=== PATIENT | female | born 1935 | race Caucasian/White ===

== ENCOUNTER 2017-11-08 12:30 | Outpatient (CLI) | payer MEDICARE, OTHER ==
[~2017-11-08] VITALS: Ht 157.5 cm; Wt 78.9 kg
[2017-11-08 12:39] VITALS: BP 150/77
[2017-11-08] MEDS ORDERED: AMLO2.5T PO (12:49)
[2017-11-08] MEDS ORDERED: CETI10TA17 PO (12:49)
[2017-11-08] MEDS ORDERED: HYDR25TA4 PO (12:49)
[2017-11-08] MEDS ORDERED: LOSA25TA21 PO (12:49)
[2017-11-08] MEDS ORDERED: ATOR10TA66 PO (12:49)
[2017-11-08 13:27] LABS: BILIRUBIN,URINE NEGATIVE (NEGATIVE); KETONES,URINE NEGATIVE (NEGATIVE); LEUKOCYTE ESTERASE ,URINE 1+ (NEGATIVE); NITRITE,URINE NEGATIVE (NEGATIVE); PH,URINE 6 (5-9); PROTEIN,URINE NEGATIVE (NEGATIVE); UROBILINOGEN,URINE NORMAL (NORMAL)
[2017-11-08 13:40] LABS: WBC,URINE RARE /HPF
[2017-11-08 13:46] LABS: BASOPHILS # (AUTO) 0.1 10^3/uL (0.0-0.1); BASOPHILS % (AUTO) 1 % (0-10); EOSINOPHILS # (AUTO) 0.5 10^3/uL (0.0-0.3); EOSINOPHILS % (AUTO) 5 % (0-10); LYMPHOCYTES # (AUTO) 2.6 X 10^3 (1.0-4.0); LYMPHOCYTES % (AUTO) 31 % (12-44); MEAN CORPUSCULAR HEMOGLOBIN 31 PG (25-34); MEAN CORPUSCULAR HGB CONC 33 G/DL (32-36); MEAN CORPUSCULAR VOLUME 94 FL (80-99); MEAN PLATELET VOLUME 11.1 FL (7.4-10.4); MONOCYTES # (AUTO) 0.5 X 10^3 (0.0-1.0); MONOCYTES % (AUTO) 6 % (0-12); NEUTROPHILS # (AUTO) 4.9 X 10^3 (1.8-7.8); NEUTROPHILS % (AUTO) 58 % (42-75); PLATELET COUNT 287 10^3/uL (130-400); RED BLOOD COUNT 4.29 10^6/uL (4.35-5.85); RED CELL DISTRIBUTION WIDTH 13.9 % (10.0-14.5); WHITE BLOOD COUNT 8.5 10^3/uL (4.3-11.0)
[2017-11-08 13:55] LABS: INR 0.9 (0.8-1.4); PROTHROMBIN TIME PATIENT 11.8 SEC (12.2-14.7)
[2017-11-08 13:56] LABS: ALANINE AMINOTRANSFERASE 22 U/L (0-55); ALBUMIN 4.1 GM/DL (3.2-4.5); ANION GAP 7 MMOL/L (5-14); ASPARTATE AMINO TRANSFERASE 23 U/L (5-34); BILIRUBIN,TOTAL 0.4 MG/DL (0.1-1.0); BLOOD UREA NITROGEN 18 MG/DL (7-18); BUN/CREATININE RATIO 26; CARBON DIOXIDE 29 MMOL/L (21-32); CHLORIDE 103 MMOL/L (98-107); GFR ESTIMATED > 60; GLUCOSE 104 MG/DL (70-105); POTASSIUM 3.6 MMOL/L (3.6-5.0); SODIUM 139 MMOL/L (135-145); TOTAL PROTEIN 7.2 GM/DL (6.4-8.2)
[2017-11-08 14:03] LABS: ERYTHROCYTE SEDIMENTATION RATE 17 MM/HR (0-30)
--- NOTE | 2017-11-08 14:15 | Diagnostic Imaging Report ---
INDICATION: Preop knee arthroplasty EXAMINATION: PA and lateral chest Heart size and pulmonary vascularity are normal. Lungs are clear. There are no effusions or pneumothoraces. IMPRESSION: Negative chest. Dictated by: Dictated on workstation # [id number]
== END 2017-11-08 13:35 | disposition home or self-care (01) ==
LOC: PREOP 12:30
PROVIDERS: ATTEND Orthopaedic Surgery
DX: Z01.811 Encounter for preprocedural respiratory examination (principal); Z01.812 Encounter for preprocedural laboratory examination; Z11.2 Encounter for screening for other bacterial diseases; M17.12 Unilateral primary osteoarthritis, left knee; R53.83 Other fatigue
CPT/HCPCS: 36415; 71020; 80053; 81000; 85025; 85610; 85652; 86850; 86900; 86901; 87081

== ENCOUNTER 2017-11-22 06:00 | Inpatient (IN) | payer MEDICARE, OTHER ==
--- NOTE | 2017-11-13 12:20 | HISTORY AND PHYSICAL ---
DATE OF SERVICE: SOCIAL SECURITY: 8976. This will be for inpatient admission on 11/22/2017, for left total knee arthroplasty. HISTORY OF PRESENT ILLNESS: The patient is an 82-year-old female with a longstanding progressive left knee pain. She has undergone treatment with hyaluronic acid and injections. She reports activity limitations because of the knee. She denies any recent injuries. Radiographs reveal complete loss of medial and patellofemoral joint spaces with osteophyte formation. Due to functional impairment and failure to improve with conservative measures, the patient has elected to proceed with surgical intervention. REVIEW OF SYSTEMS: No chest pain, no shortness of breath, no dysuria. PAST MEDICAL HISTORY: Arthritis. PAST SURGICAL HISTORY: Cholecystectomy, tonsillectomy, left knee arthroscopy and trigger finger release. FAMILY HISTORY: Significant for ischemic heart disease, leukemia. No local physician. MEDICATIONS: Vitamins. ALLERGIES: No known drug allergies. SOCIAL HISTORY: The patient denies alcohol and tobacco use. PHYSICAL EXAMINATION: GENERAL: The patient is well developed, well-nourished in no acute distress. HEENT: Normocephalic, atraumatic. Pupils are equal, round and reactive. Oropharynx is clear. NECK: Supple, no lymphadenopathy. LUNGS: Clear to auscultation bilaterally. HEART: Regular rate and rhythm. ABDOMEN: Soft, nontender, nondistended. EXTREMITIES: The left knee demonstrates range of motion 0/2/120. No skin lesions are noted. She has intact sensation throughout. She has trace valgus laxity. No varus laxity. Slight effusions noted. She is tender along the medial joint line. She has patellofemoral crepitus and pain with patellar loading. The patient ambulates with an antalgic gait. IMPRESSION: Severe left knee osteoarthritis unresponsive to conservative measures. PLAN: Left total knee arthroplasty. The risks, benefits, options, ramifications and recovery have been discussed at length with the patient. She understands and wishes to proceed. Job ID: [id number] DocumentID: [id number] Dictated Date: 11/13/2017 11:20:18 Computer Engineering Technician Date: 11/13/2017 12:12:13 Dictated By: JODI TILLEY MD
[~2017-11-22] VITALS: Ht 157.5 cm; Wt 78.9 kg
[~2017-11-22 06:00] MED LIST: AMLO2.5T PO; ATOR10TA66 PO; CETI10TA17 PO; HYDR25TA4 PO; LOSA25TA21 PO
[2017-11-22 06:27] VITALS: BP 136/80
[2017-11-22] MEDS ORDERED: CEFUROXIME INJECTION 1,500 MG in NS (IVPB) 50 ML IV ONE (06:45)
[2017-11-22] MEDS: LACTATED RINGERS 1,000 ML IV PRN ×2 (06:47→07:20)
[2017-11-22] MEDS ORDERED: CEFUROXIME 1.5 GM (ZINACEF) VIAL ONE (06:48)
[2017-11-22] MEDS ORDERED: NS (IVPB) 50 ML ONE (06:49)
[2017-11-22] MEDS ORDERED: ONDANSETRON 4 MG/2 ML (SDV) Z0FRAN ONE (06:58)
[2017-11-22] MEDS ORDERED: MIDAZOLAM 2 MG/2 ML (VERSED) VIAL ONE (06:58)
[2017-11-22] MEDS ORDERED: PROPOFOL INJECTION 50 ML IV ONE (06:58)
[2017-11-22] MEDS ORDERED: fentaNYL INJECTION 100 MCG/2 ML AMP ONE (07:07)
[2017-11-22] MEDS ORDERED: diphenhydrAMINE 50 MG/ML INJ (BENADRYL) IVP PRN (07:30)
[2017-11-22] MEDS ORDERED: morphine PCA 30 MG/30 ML VIAL IV PRN (07:30)
[2017-11-22] MEDS ORDERED: ACETAMINOPHEN 325 MG TABLET/CAPLET (TYLENOL) PO PRN (07:30)
--- NOTE | 2017-11-22 07:30 | Progress Note-Pre Operative ---
Pre-Operative Progress Note H&P Reviewed The H&P was reviewed, patient examined and no changes noted. Date Seen by Provider: Nov 22, 2017 Time Seen by Provider: 07:11 Date H&P Reviewed: Nov 22, 2017 Time H&P Reviewed: 07:11 Pre-Operative Diagnosis: left knee primary osteoarthritis JODI TILLEY MD Nov 22, 2017 07:30
--- NOTE | 2017-11-22 07:31 | Progress Note-Post Operative ---
Post-Operative Progess Note Surgeon (s)/Multiple Wire Sawyer (s) Surgeon JODI TILLEY MD Multiple Wire Sawyer: Adam Tariq Pre-Operative Diagnosis left knee primary osteoarthritis Post-Operative Diagnosis left knee primary osteoarthritis Procedure & Operative Findings Date of Procedure 11/22/17 Procedure Performed/Findings left total knee arthroplasty Anesthesia Type spinal Estimated Blood Loss Estimated blood loss (mL): minimal Specimens/Packing Specimens Removed none Packing: none JODI TILLEY MD Nov 22, 2017 07:31
[2017-11-22] MEDS ORDERED: OXYC-197 PO (07:33)
--- NOTE | 2017-11-22 07:36 | D/C HH Face to Face Order ---
D/C Face to Face Orders Instructions for Patient Patient Instructions/FollowUp: three weeks Physician to follow Patient: in three weeks Discharge Diet for Home: No Restrictions Patient Data-Allergies,Ht & Wt Patient Allergies: Coded Allergies: No Known Drug Allergies (Unverified , 11/08/17) Height (Feet): 5 Height (Inches): 2.00 Weight (Pounds): 174 Weight (Ounces): 0.0 Home Health Need/Face to Face Date of Face to Face: Nov 22, 2017 Clinical Findings: Generalized weakness and fatigue, Instability, Muscle weakness, Non or partial weight bearing, Pain with ambulation, Unsteady gait I have seen Pt [id number]: Yes Discharged To: Home Diagnosis/Conditions: left total knee arthroplasty Problems/Diagnosis/Condition: Patient is Homebound due to: Muscle weakness, Pain w/ambulation Homebound Status Due to the above stated illness, injury or surgical procedure (medical condition or diagnosis) and associated clinical findings, the patient is homebound because of his/her inability to leave home except with aid of a supportive device and/or person AND leaving the home requires a considerable and taxing effort or is medically contraindicated. Pt req the following assistanc: [facility] Nursing Orders Home Health Services Order: Physical Therapy-Evaluate & Treat Home Health Infusion Therapy Line Start Date: Nov 22, 2017 Line Start Time: 0620 Site Location: Forearm Therapy Orders Therapy Orders: Physical Therapy Therapy Specific Orders: Eval assistive deivces, Teach enviro modifications/ safety, Gait training, Increase strength/endurance, Restore ROM Certify Stmt I certify that this patient is under my care and that I, a nurse practitioner or a physician; a child care center assistant director working with me, had a face to face encounter that - meets the physician face to face encounter requirements with this patient as dated. JODI TILLEY MD Nov 22, 2017 07:36
[2017-11-22] MEDS ORDERED: INTRA-ARTICULAR IU ONE ×5 (07:45)
[2017-11-22] MEDS ORDERED: CATHETER FLUSH 10 ML SYR IV PRN (08:15)
[2017-11-22] MEDS ORDERED: ceFAZolin 1 GM/NS 50 ML IVPB IV ONE ×2 (08:15)
[2017-11-22] MEDS ORDERED: morphine INJ 10 MG/ML 1ML (SYR OR VIAL) ONE (08:48)
[2017-11-22] MEDS ORDERED: MEPERIDINE (DEMEROL) INJ 50 MG/ML IVP PRN (09:45)
[2017-11-22] MEDS ORDERED: morphine INJ 10 MG/ML 1ML (SYR OR VIAL) IVP PRN (09:45)
[2017-11-22] MEDS ORDERED: ONDANSETRON 4 MG/2 ML (SDV) Z0FRAN IVP PRN (09:45)
--- NOTE | 2017-11-22 10:18 | Diagnostic Imaging Report ---
2 views of the left knee. Indication: post total knee arthroplasty Findings: There is femoral and tibial prosthesis with patellar resurfacing and prosthesis seen. Anterior soft tissue post-operative changes are noted with anterior skin merlin seen. Impression: Baseline post left total knee arthroplasty in good alignment. Dictated by: Dictated on workstation # [id number]
--- NOTE | 2017-11-22 10:18 | Progress Note-Standard ---
Standard Progress Note Progress Notes/Assess & Plan Date Seen by Provider: Nov 22, 2017 Time Seen by Provider: 10:10 Progress/Assessment & Plan post op check No complaints Radiographs--HW well positioned. No fractures LLE--spinal in effect. 2 plus DP pulse with brisk cap refill. Intact DF and PF of toes and ankle s/p LTKA mobilize as able when spinal no longer in effect JODI TILLEY MD Nov 22, 2017 10:18
[2017-11-22 10:30] VITALS: BP 120/56
[2017-11-22] MEDS: NS IV 1000 ML 1,000 ML IV SCH ×2 (10:55→22:21)
--- NOTE | 2017-11-22 11:43 | Consultation-Hospitalist ---
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 Cartagena. Currently she has no pain and her BP is slightly low so I have held her home BP meds. Source: patient Exam Limitations: no limitations Date Seen 11/22/17 Attending Physician Jovani Cartagena MD PCP No,Local Physician Referring Physician Date of Admission Nov 22, 2017 at 06:00 Home Medications & Allergies Home Medications Reviewed patient Home Medication Reconciliation Form Allergies Allergies Coded Allergies No Known Drug Allergies (Fxnqomyumi10/13/17) Past Xqnkwou-Ifhhht-Zkbzfw Hx Patient Social History Marrital Status: single Employed/Student: retired Alcohol Use: Denies Use Recreational Drug Use: No Smoking Status: Never a Smoker Physical Abuse Screen: No Sexual Abuse: No Recent Foreign Travel: No Contact w/other who traveled: No Recent Hopitalizations: No Recent Infectious Disease Expo: No Immunizations Up To Date Date of Pneumonia Vaccine: Oct 31, 2017 Date of Influenza Vaccine: Aug 28, 2017 Seasonal Allergies Seasonal Allergies: No Surgeries Yes (left knee scope, trigger finger release) Respiratory No Cardiovascular Yes Hypertension Neurological No Genitourinary No Gastrointestinal No Musculoskeletal Yes Arthritis Endocrine History of Endocrine Disorders: No Cancer No Psychosocial History of Psychiatric Problem: No Integumentary History of Skin or Integumenta: No Blood Transfusions History of Blood Disorders: No Family Medical History Family Hx: Cardiovascular disease 19 FATHER Diabetes mellitus G8 SISTER FH: leukemia 19 MOTHER Hypertension 19 FATHER Myocardial infarction 19 FATHER Review of Systems Constitutional: see HPI EENTM: no symptoms reported Respiratory: no symptoms reported Cardiovascular: no symptoms reported Gastrointestinal: no symptoms reported Genitourinary: no symptoms reported Musculoskeletal: joint pain (left knee) Skin: no symptoms reported Psychiatric/Neurological: No Symptoms Reported All Other Systems Reviewed Negative Unless Noted: Yes Physical Exam Physical Exam Vital Signs Vital Sign - Last 12Hours 11/22/17 06:27 Temp 98.9 Pulse 93 Resp 18 B/P (MAP) 136/80 (98) Pulse Ox 93 O2 Delivery Room Air Capillary Refill : General Appearance: No Apparent Distress, WD/WN, Chronically ill Eyes: Bilateral Eye Normal Inspection, Bilateral Eye PERRL HEENT: PERRL/EOMI, Normal ENT Inspection, Pharynx Normal Neck: Full Range of Motion, Normal Inspection, Non Tender, Supple, Carotid Bruit Respiratory: Chest Non Tender, Lungs Clear, Normal Breath Sounds, No Accessory Muscle Use, No Respiratory Distress Cardiovascular: Regular Rate, Rhythm, No Edema, No Gallop, No JVD, No Murmur, Normal Peripheral Pulses Gastrointestinal: Normal Bowel Sounds, No Organomegaly, No Pulsatile Mass, Non Tender, Soft Back: Normal Inspection, No CVA Tenderness, No Vertebral Tenderness Extremity: Normal Capillary Refill, Normal Inspection, Normal Range of Motion ( except left knee), Non Tender, No Calf Tenderness, No Pedal Edema Neurologic/Psychiatric: Alert, Oriented x3, No Motor/Sensory Deficits, Normal Mood/Affect Skin: Normal Color, Warm/Dry Lymphatic: No Adenopathy Assessment/Plan Admission Diagnosis Assessment: s/p left knee arthroplasty POD # 0 HTN but currently experiencing mild hypotension so holding meds OA Assessment and Plan Plan: Monitor BP Check labs in am Hold BP meds for now BM regimen DVT Px Clinical Quality Measures DVT/VTE Risk/Contraindication: Risk Factor Score Per Nursin RFS Level Per Nursing on Admit: 4+=Very High DANA IVAN DO Nov 22, 2017 11:43
[2017-11-22] MEDS: SENNA W/DOCUSATE (SENOKOT S) TABLET PO SCH ×2 (11:56→20:22)
[2017-11-22 12:00] VITALS: BP 134/61
[2017-11-22] MEDS: oxyCODONE/APAP 5/325MG (PERCOCET 5) TABLET PO PRN ×5 (12:54→23:12)
--- NOTE | 2017-11-22 13:38 | Physical Therapy Progress Note ---
Therapy Progress Note 1133 am: CPM fit and applied 0-53 degrees. PUJA GODINEZ PT Nov 22, 2017 13:38
--- NOTE | 2017-11-22 13:50 | OPERATIVE REPORT ---
DATE OF SERVICE: 11/22/2017 PREOPERATIVE DIAGNOSIS: Left knee primary osteoarthritis. POSTOPERATIVE DIAGNOSIS: Left knee primary osteoarthritis. PROCEDURE: Left total knee arthroplasty. SURGEON: Jovani Cartagena MD [facility] DIRECTOR: NISHA Whitney, who assisted throughout the procedure and closed the incision. ANESTHESIA: Spinal by Lizandro Emmanuel CRNA TOURNIQUET TIME: 75 minutes at 300 mmHg. ESTIMATED BLOOD LOSS: Minimal. DRAINS: None. COMPLICATIONS: None. POSTOPERATIVE PLAN: Routine total knee arthroplasty protocol. MATERIALS: MicroPort cemented size 4 femur, cemented size 4 tibia with a 10 mm insert and cemented size 29 patellar button. STATEMENT OF MEDICAL NECESSITY: The patient is an 82-year-old female with longstanding progressive bilateral knee pain. Radiographs revealed severe tricompartmental osteoarthritis. She has undergone treatment with injections, anti-inflammatories and rest without relief and due to functional impairment and failure to improve with conservative measures, the patient elected to proceed with surgical intervention. DESCRIPTION OF PROCEDURE: After risks and benefits of procedure were discussed and questions were answered, an informed consent was signed and placed on the chart. The operative site was confirmed in the preoperative holding area initialed by the surgeon. The patient was transported to the operating room. After adequate levels of regional anesthetic were obtained, a timeout was called confirming the operative site. The left lower extremity was prepped and draped in the usual sterile fashion with the leg elevated and the knee flexed. Tourniquet was inflated to 300 mmHg. A standard anterior approach was utilized. Hemostasis was obtained with cautery. Medial parapatellar arthrotomy was performed leaving 1 cm cuff on the patella for later reattachment. A portion of the fat pad was resected. The ACL was resected. A subperiosteal release was performed in the proximal medial tibia with curved osteotome being careful to stay on the bony surface. The intramedullary guide was passed into the femur and the distal cutting block was placed. Distal cut was made. The femur was sized to a size 4. A 4 cutting block was placed parallel to the epicondylar axis and cuts were made from posterior to anterior. A subperiosteal release was then carefully performed in the posterior distal femur, being careful to stay on the bony surface. The intramedullary guide was then passed into the tibia. The cutting block was placed. The drop randy transected the intermalleolar axis and the cut was made. The baseplate was placed and again the drop randy transected the intermalleolar axis. The 4 baseplate was prepared using the drill and keel punch. The trials were inserted. The trochlear cut was made on the femur. A 10 mm insert was placed. Full extension was easily obtained, 120 degrees of flexion with gravity was easily obtained. The patella was then prepared using the free hand technique by resecting 10 mm off the undersurface. The peg guide was placed and peg holes were drilled. The trial was inserted. The patella tracked well. There was no varus/valgus or anterior/posterior laxity in flexion or extension, 120 degrees of flexion with gravity was easily obtained and full extension was easily obtained. The trials were removed. The joint was irrigated with pulse lavage. The bone ends were irrigated and dried. The periarticular block was placed in the posterior capsule, medial and right lateral retinaculum and extensor mechanisms. The bone ends were irrigated and dried. The tibial baseplate was cemented into position. Excessive cement was removed. The superior surface was irrigated and dried. The polyethylene insert was placed. Distal femur was irrigated and dried and the femoral prosthesis was cemented into position. Excessive cement was removed. The knee was brought into full extension until cement had cured. The undersurface of the patella was irrigated and dried and the patellar button was cemented in position. Excessive cement was removed. Once the cement had cured, the knee was taken through range of motion. Full extension was easily obtained, 120 degrees of flexion with gravity was easily obtained. The patella tracked well. There was no anterior/posterior or medial/lateral laxity in flexion or extension. The joint was further irrigated with pulse lavage. Arthrotomy was closed with #2 Tevdek in [id number]-maire interrupted fashion. Knee was flexed. The patella tracked well with no undue tension noted at the repair site. The subcutaneous tissues were irrigated using a total of 6 liters throughout the procedure. A 0 Vicryl was used for the deep subcutaneous tissue, 2-0 Vicryl uture for the superficial subcutaneous tissue, merlin used on the skin. A soft dressing was applied. The tourniquet was deflated and the patient was transported to the recovery room awake and in stable condition. Job ID: [id number] DocumentID: [id number] Dictated Date: 11/22/2017 09:31:38 Color Receiver Date: 11/22/2017 13:49:57 Dictated By: JOVANI CARTAGENA MD
--- NOTE | 2017-11-22 14:50 | Physical Therapy Evaluation ---
PT Evaluation-General Medical Diagnosis Admission Date Nov 22, 2017 at 06:00 Medical Diagnosis: arthritis L knee Onset Date: Nov 22, 2017 Therapy Diagnosis Therapy Diagnosis: weakness; abn gait Height/Weight Height (Feet): 5 Height (Inches): 2.00 Weight (Pounds): 174 Weight (Ounces): 0.0 Precautions Precautions/Isolations: Fall Prevention, Standard Precautions Weight Bear Status Right Lower Extremity: Right Full Weight Bearing Left Lower Extremity: Left Weight Bearing/Tolerated Referral Physician: Mitzi Reason for Referral: Evaluation/Treatment Medical History Pertinent Medical History: Arthritis Current History Admitted for elective left TKR Reviewed History: Yes Social History Home: Single Level Current Living Status: Alone Entry Into Home: Stairs With Railing Prior/Core FIM Prior Level of Function Functional [place] Measure 0=Not Assessed/NA 4=Minimal Assistance 1=Total Assistance 5=Supervision or Setup 2=Maximal Assistance 6=Modified [place] 3=Moderate Assistance 7=Complete [place] Bed Mobility: 7 Transfers (B,C,W/C) (FIM): 7 Gait: 7 Active; still drives; community ambulator PT Evaluation-Current Subjective Reports having some discomfort at this time. Has taken oral pain meds. Pain Numeric Pain Scale: 6 Location: Left Location Body Site: Knee Pain Description: Ache Pt/Family Goals Home when able. Objective Patient Orientation: Person, Place, Time, Situation Problem Solving: Good ROM/Strength ROM Lower Extremities WFL; except left knee is 0-90 degrres AAROM Strength Lower Extremities WFL except left quads/hams are grossly 2/5 Integumentary/Posture Bowel Incontinence: No Bladder Incontinence: No Posture Normal and symmetrical Neuromuscular (Tone, Coordination, Reflexes) No noted functional deficits Sensory Vision: Functional Hearing: Functional Hand Dominance: Right Sensation Right Lower Extremit: Intact Sensation Left Lower Extremity: Intact Transfers Functional [place] Measure 0=Not Assessed/NA 4=Minimal Assistance 1=Total Assistance 5=Supervision or Setup 2=Maximal Assistance 6=Modified [place] 3=Moderate Assistance 7=Complete [place] Transfers (B, C, W/C) (FIM): 4 Supine to/from Sit: 4 Sit to/from Stand: 4 Skilled ccues for hand placement and sequencing. Reviewd WBAT status. Pt stood EOB and took deep breaths. Sidestepped to the left with FWW with CGA and cues to sequence. In bed post treatment with needs met, SCD and polar pack in place. Pt requested to leave CPM off for now as she had just gotten out of it. Balance Sitting Static: Good Sitting Dynamic: Good Standing Static: Good Standing Dynamic: Good Assessment/Needs Post elective left TKR with decreased strength, ROM, transfers and functional gait. She will benefit from skilled PT intervnetion to address deficits and return her mobility to [facility] so she can return home and care for herself. Rehab Potential: Good PT Chief Science Officer Goals Jail Goals PT Jail Goals Time Frame: Nov 28, 2017 Transfers (B,C,W/C) (FIM): 6 Gait (FIM): 6 Gait distance (FIM): 3=150 ft Gait Assistive Device: FWW Stairs (FIM): 5 # of Steps: 4 PT Plan Problem List Problem List: Activity Tolerance, Functional Strength, Safety, Balance, Gait, Transfer, Bed Mobility Treatment/Plan Treatment Plan: Continue Plan of Care Treatment Plan: Bed Mobility, Education, Functional Activity Joseph, Functional Strength, Gait, Safety, Therapeutic Exercise, Transfers Treatment Duration: Nov 28, 2017 Frequency: 11 times per week Estimated Hrs Per Day: 1 hour per day Patient and/or Family Agrees t: Yes Safety Risks/Education Patient Education: Transfer Techniques, Safety Issues Teaching Recipient: Patient Teaching Methods: Demonstration, Discussion Response to Teaching: Reinforcement Needed Discharge Recommendations Therapy D/C Recommendations: Physical Therapy Home Care Time/GCodes Time In: 1400 Time Out: 1430 Total Billed Treatment Time: 30 Total Billed Treatment visit EVL 15 FA 15 PUJA GODINEZ PT Nov 22, 2017 14:50
[2017-11-22] MEDS: CEFUROXIME INJECTION 750 MG in NS (IVPB) 50 ML IV SCH ×2 (15:03→23:18)
[2017-11-22 16:15] VITALS: BP 139/71
[2017-11-22] MEDS: ONDANSETRON 4 MG/2 ML (SDV) Z0FRAN IVP PRN ×2 (18:03→22:14)
[2017-11-22] MEDS: LOSARTAN 25 MG (COZAAR) TAB PO SCH (18:16)
[2017-11-22] MEDS: LORATADINE (CLARITIN) 10 MG TAB PO SCH (20:22)
[2017-11-22 20:34] VITALS: BP 168/70
[2017-11-23] VITALS: BP 139/64
[2017-11-23] MEDS: oxyCODONE/APAP 5/325MG (PERCOCET 5) TABLET PO PRN ×7 (01:12→22:05)
[2017-11-23 04:00] VITALS: BP 126/60
[2017-11-23] MEDS: MULTIVIT W/MINERALS TAB (THERAGRAN M) PO SCH (06:19)
[2017-11-23 06:35] LABS: BASOPHILS % (AUTO) 0 % (0-10); EOSINOPHILS # (AUTO) 0.1 10^3/uL (0.0-0.3); EOSINOPHILS % (AUTO) 1 % (0-10); HEMATOCRIT 30 % (35-52); LYMPHOCYTES # (AUTO) 1.7 X 10^3 (1.0-4.0); LYMPHOCYTES % (AUTO) 18 % (12-44); MEAN CORPUSCULAR HEMOGLOBIN 31 PG (25-34); MEAN CORPUSCULAR HGB CONC 33 G/DL (32-36); MEAN CORPUSCULAR VOLUME 94 FL (80-99); MONOCYTES # (AUTO) 0.8 X 10^3 (0.0-1.0); MONOCYTES % (AUTO) 9 % (0-12); NEUTROPHILS # (AUTO) 6.8 X 10^3 (1.8-7.8); NEUTROPHILS % (AUTO) 72 % (42-75); PLATELET COUNT 222 10^3/uL (130-400); RED BLOOD COUNT 3.18 10^6/uL (4.35-5.85); RED CELL DISTRIBUTION WIDTH 13.9 % (10.0-14.5); WHITE BLOOD COUNT 9.4 10^3/uL (4.3-11.0)
[2017-11-23 06:54] LABS: ALANINE AMINOTRANSFERASE 22 U/L (0-55); ALBUMIN 3.1 GM/DL (3.2-4.5); ALKALINE PHOSPHATASE 57 U/L (40-136); BILIRUBIN,TOTAL 0.5 MG/DL (0.1-1.0); BUN/CREATININE RATIO 20; CALCIUM 8.3 MG/DL (8.5-10.1); CARBON DIOXIDE 24 MMOL/L (21-32); CHLORIDE 101 MMOL/L (98-107); CREATININE SERUM 0.64 MG/DL (0.60-1.30); GFR ESTIMATED > 60; GLUCOSE 104 MG/DL (70-105); POTASSIUM 3.5 MMOL/L (3.6-5.0); SODIUM 134 MMOL/L (135-145); TOTAL PROTEIN 4.9 GM/DL (6.4-8.2)
--- NOTE | 2017-11-23 07:53 | Progress Note-Standard ---
Standard Progress Note Progress Notes/Assess & Plan Date Seen by Provider: Nov 23, 2017 Time Seen by Provider: 07:51 Progress/Assessment & Plan post op check No complaints Radiographs--HW well positioned. No fractures LLE--spinal in effect. 2 plus DP pulse with brisk cap refill. Intact DF and PF of toes and ankle s/p LTKA mobilize as able when spinal no longer in effect Final Diagnosis No complaints Vital Signs Date Time Temp Pulse Resp B/P (MAP) Pulse Ox O2 Delivery O2 Flow Rate FiO2 11/23/17 06:00 17 11/23/17 04:00 97.8 84 17 126/60 (82) 94 Room Air 11/23/17 00:00 96.1 75 19 139/64 (89) 95 Room Air 11/22/17 20:34 96.1 73 18 168/70 (102) 98 Room Air 11/22/17 18:00 16 11/22/17 16:15 96.3 64 16 139/71 (93) 98 Room Air 11/22/17 12:00 96.2 62 20 134/61 (85) 98 Room Air 11/22/17 11:01 16 11/22/17 10:30 95.3 59 18 120/56 (77) 100 Room Air I & O 11/23/17 07:00 Intake Total 5140 ml Output Total 1700 ml Balance 3440 ml Laboratory Tests Test 11/23/17 06:18 Range/Units White Blood Count 9.4 4.3-11.0 10^3/uL Red Blood Count 3.18 L 4.35-5.85 10^6/uL Hemoglobin 10.0 L 11.5-16.0 G/DL Hematocrit 30 L 35-52 % Mean Corpuscular Volume 94 80-99 FL Mean Corpuscular Hemoglobin 31 25-34 PG Mean Corpuscular Hemoglobin Concent 33 32-36 G/DL Red Cell Distribution Width 13.9 10.0-14.5 % Platelet Count 222 130-400 10^3/uL Mean Platelet Volume 10.0 7.4-10.4 FL Neutrophils (%) (Auto) 72 42-75 % Lymphocytes (%) (Auto) 18 12-44 % Monocytes (%) (Auto) 9 0-12 % Eosinophils (%) (Auto) 1 0-10 % Basophils (%) (Auto) 0 0-10 % Neutrophils # (Auto) 6.8 1.8-7.8 X 10^3 Lymphocytes # (Auto) 1.7 1.0-4.0 X 10^3 Monocytes # (Auto) 0.8 0.0-1.0 X 10^3 Eosinophils # (Auto) 0.1 0.0-0.3 10^3/uL Basophils # (Auto) 0.0 0.0-0.1 10^3/uL Sodium Level 134 L 135-145 MMOL/L Potassium Level 3.5 L 3.6-5.0 MMOL/L Chloride Level 101 98-107 MMOL/L Carbon Dioxide Level 24 21-32 MMOL/L Anion Gap 9 5-14 MMOL/L Blood Urea Nitrogen 13 7-18 MG/DL Creatinine 0.64 0.60-1.30 MG/DL Estimat Glomerular Filtration Rate > 60 BUN/Creatinine Ratio 20 Glucose Level 104 70-105 MG/DL Calcium Level 8.3 L 8.5-10.1 MG/DL Total Bilirubin 0.5 0.1-1.0 MG/DL Aspartate Amino Transf (AST/SGOT) 20 5-34 U/L Alanine Aminotransferase (ALT/SGPT) 22 0-55 U/L Alkaline Phosphatase 57 40-136 U/L Total Protein 4.9 L 6.4-8.2 GM/DL Albumin 3.1 L 3.2-4.5 GM/DL LLE--dressing intact. Neg SLR. No calf tenderness. Neg David's. intact sensation throughout. NVI s/p LTKA doing well PT/OT JODI TILLEY MD Nov 23, 2017 07:52
[2017-11-23 08:00] VITALS: BP 120/59
[2017-11-23] MEDS: ENOXAPARIN 30 MG/0.3 ML (LOVENOX) SYR SC SCH ×2 (08:08→20:09)
[2017-11-23] MEDS: LOSARTAN 25 MG (COZAAR) TAB PO SCH (08:08)
[2017-11-23] MEDS: ASPIRIN E.C. 81 MG (ECOTRIN) TAB PO SCH ×2 (08:08→09:13)
[2017-11-23] MEDS: SENNA W/DOCUSATE (SENOKOT S) TABLET PO SCH ×2 (08:08→20:09)
[2017-11-23] MEDS: NS IV 1000 ML 1,000 ML IV SCH ×3 (08:33→23:52)
[2017-11-23] MEDS: ONDANSETRON 4 MG/2 ML (SDV) Z0FRAN IVP PRN ×3 (08:57→17:21)
[2017-11-23] MEDS ORDERED: LOSARTAN 25 MG (COZAAR) TAB PO SCH (09:00)
--- NOTE | 2017-11-23 09:51 | Physical Therapy Daily Note ---
PT Daily Note-Current Subjective Patient continues to c/o N&V. Family present. Pain Numeric Pain Scale: 8 Location: Left Location Body Site: Knee Pain Description: Acute Mental Status Patient Orientation: Normal For Age Attachments: IV Transfers Functional [place] Measure 0=Not Assessed/NA 4=Minimal Assistance 1=Total Assistance 5=Supervision or Setup 2=Maximal Assistance 6=Modified [place] 3=Moderate Assistance 7=Complete IndependenceIRFPAI Quality Coding Scale 6 Independent with activity with or without an assistive device 5 Patient requires set up or clean up by helper. Patient completes activity by themselves 4 Supervision or touching assist (CGA). [place] provide cues , steadying assist 3 The helper provides less than half the effort to complete the activity 2 The helper provides more than half the effort to complete the activity 1 Dependent. The helper does all the effort to complete an activity 7 Patient refused to complete or attempt activity 9 The patient did not perform the activity before the current illness or injury 88 Not attempted due to Medical conditions or safety concerns Transfers (B, C, W/C) (FIM): 4 Scootin Supine to/from Sit: 5 Sit to/from Stand: 4 Bed to/from Chair: 4 CGA for safety Weight Bearing Right Lower Extremity: Right Full Weight Bearing Left Lower Extremity: Left Weight Bearing/Tolerated Gait Training Gait (FIM): 2 Distance (FIM): 5=988-09 ft Distance: 50' Gait Level of Assist: 4 Gait Persons Needed: 1 Gait Assistive Device: FWW Patient c/o dizziness with gait. Antalgic gait sequence and self limits. Exercises Supine Ex: Ankle pumps, Quad Set, Heel Slides, Straight leg raise Supine Reps: 10 Seated Therapy Exercises: Long arc quads Seated Reps: 10 Assessment Patient does have episode of vomiting during treatment. RN in for antinausea medication. Patient is progressing with treatment. PT Group Home Goals Group Home Goals PT Phone Operator Goals Time Frame: Nov 28, 2017 Transfers (B,C,W/C) (FIM): 6 Gait (FIM): 6 Gait distance (FIM): 3=150 ft Gait Assistive Device: FWW Stairs (FIM): 5 # of Steps: 4 PT Plan Treatment/Plan Treatment Plan: Continue Plan of Care Treatment Plan: Bed Mobility, Education, Functional Activity Joseph, Functional Strength, Gait, Safety, Therapeutic Exercise, Transfers Treatment Duration: Nov 28, 2017 Frequency: 11 times per week Estimated Hrs Per Day: 1 hour per day Patient and/or Family Agrees t: Yes Time/GCodes Time In: 830 Time Out: 905 Total Billed Treatment Time: 35 Total Billed Treatment 1 visit GT 15 min EX 20 min TEJAS HENSLEY PT Nov 23, 2017 09:51
--- NOTE | 2017-11-23 10:43 | Progress Note-Hospitalist ---
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 Cartagena. Currently she has no pain and her BP is slightly low so I have held her home BP meds. Progress Notes/Assess & Plan Date Seen 11/23/17 Time Seen by Provider: 10:00 Admission Dx/Process Assessment: s/p left knee arthroplasty POD # 0 HTN but currently experiencing mild hypotension so holding meds OA Diagonsis/Assessment & Plan Pt having nausea and vomiting Pain meds not helping her and making her sick Checked meds and labs BP varied at times AFVSS, Pleasant, O x 3, pale, fatigued RRR, CTAB no edema Laboratory Tests 11/23/17 06:18 Assessment: s/p left knee arthroplasty POD # 1 HTN but currently experiencing mild hypotension so holding meds OA Current nausea and pain Mild hypokalemia Mild post op anemia due to acute blood loss Plan: Monitor BP Check labs in am Hold BP meds for now BM regimen DVT Px Scop patch for nausea DANA IVAN DO Nov 23, 2017 10:43
[2017-11-23] MEDS ORDERED: SCOPOLAMINE 1.5 MG (TRANSDERM-SCOP) PATCH TD ONE (10:45)
[2017-11-23 12:00] VITALS: BP 112/55
--- NOTE | 2017-11-23 13:42 | Anesthesia-Regional Post-Op ---
Regional Patient Condition Mental Status: Alert, Oriented x3 Circulation: Same as Pre-Op Headache: Absent Sensation: Full Recovery Motor Block: Absent Post Op Complications Complications None Follow Up Care/Instructions Patient Instructions None needed. Anesthesia/Patient Condition Patient is doing well, no complaints, stable vital signs, no apparent adverse anesthesia problems. No complications reported per nursing. [place] home [place] [facility] [place]: No JOSÉ MIGUEL JONES CRNA Nov 23, 2017 13:42
--- NOTE | 2017-11-23 13:47 | Physical Therapy Daily Note ---
PT Daily Note-Current Subjective Patient reports she is feeling much better and agrees to PT. Pain Numeric Pain Scale: 5-Moderate Pain Location: Left Location Body Site: Knee Pain Description: Ache, Acute Mental Status Patient Orientation: Normal For Age Attachments: IV Transfers Functional [place] Measure 0=Not Assessed/NA 4=Minimal Assistance 1=Total Assistance 5=Supervision or Setup 2=Maximal Assistance 6=Modified [place] 3=Moderate Assistance 7=Complete IndependenceIRFPAI Quality Coding Scale 6 Independent with activity with or without an assistive device 5 Patient requires set up or clean up by helper. Patient completes activity by themselves 4 Supervision or touching assist (CGA). [place] provide cues , steadying assist 3 The helper provides less than half the effort to complete the activity 2 The helper provides more than half the effort to complete the activity 1 Dependent. The helper does all the effort to complete an activity 7 Patient refused to complete or attempt activity 9 The patient did not perform the activity before the current illness or injury 88 Not attempted due to Medical conditions or safety concerns Transfers (B, C, W/C) (FIM): 5 Scootin Supine to/from Sit: 5 Sit to/from Stand: 5 Weight Bearing Right Lower Extremity: Right Full Weight Bearing Left Lower Extremity: Left Weight Bearing/Tolerated Gait Training Gait (FIM): 5 Distance (FIM): 3=150 ft Distance: 200' Gait Level of Assist: 5 Gait Assistive Device: FWW antalgic, functional, safe Exercises Supine Ex: Ankle pumps, Quad Set, Heel Slides Supine Reps: 10 Seated Therapy Exercises: Ankle pumps, Long arc quads Seated Reps: 15 Treatments CMP 0-65 degrees with polar pack in place Assessment Current Status: Excellent Progress Patient is progressing with treatment plan. Plan dismissal on 11/25/17 PT Mcc Goals Mcc Goals PT Mcc Goals Time Frame: Nov 28, 2017 Transfers (B,C,W/C) (FIM): 6 Gait (FIM): 6 Gait distance (FIM): 3=150 ft Gait Assistive Device: FWW Stairs (FIM): 5 # of Steps: 4 PT Plan Treatment/Plan Treatment Plan: Continue Plan of Care Treatment Plan: Bed Mobility, Education, Functional Activity Joseph, Functional Strength, Gait, Safety, Therapeutic Exercise, Transfers Treatment Duration: Nov 28, 2017 Frequency: 11 times per week Estimated Hrs Per Day: 1 hour per day Patient and/or Family Agrees t: Yes Time/GCodes Time In: 1302 Time Out: 1325 Total Billed Treatment Time: 23 Total Billed Treatment 1 visit EX 10 min GT 13 min TEJAS HENSLEY PT Nov 23, 2017 13:47
[2017-11-23 15:25] VITALS: BP 171/68
--- NOTE | 2017-11-23 16:17 | Occupational Therapy Eval ---
OT Evaluation-General/PLF Medical Diagnosis Admission Date Nov 22, 2017 at 06:00 Medical Diagnosis: arthritis L knee, L TKA Onset Date: Nov 22, 2017 Therapy Diagnosis Therapy Diagnosis: decr self care Height/Weight Height (Feet): 5 Height (Inches): 2.00 Weight (Pounds): 174 Weight (Ounces): 0.0 Precautions Precautions/Isolations: Fall Prevention, Standard Precautions Safety Interventions: None Weight Bear Status Weight Bearing Restriction: Full Weight Bearing Referral Physician: Mitzi Referral Reason: Evaluation/Treatment Medical History Pertinent Medical History: Arthritis, HTN Additional Medical History Trigger finger release Current History Elective L total knee replacement Reviewed History: Yes Social History Home: Single Level Current Living Status: Alone (pt reported lives with her) Entry Into Home: Stairs With Railing Daughter reported she will stay a few days with her mother after discharge ADL-Prior Level of Function ADL PLOF Comments Pt reported that she has been able to manage her basic self care needs but had difficulty "getting around". 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 DME/Equipment: Shower Discussed BSC or toilet riser with handles for home OT Current Status Subjective Pt seen in room, up in bed, agreeable to OT. pain reported / but she said it was due to being in CPM for a couple of hours Appearance Alert, cooperative Current Glasses/Contacts: Yes Hand Dominance: Right Upper Extremity ROM Grossly WFL bilat Upper Extremity Strength Grossly WFL bilat per pt report ADL-Treatment ADL-Current Pt is interested in getting more information on assistive devices for dressing and toileting. Functional [place] Measure 0=Not Assessed/NA 4=Minimal Assistance 1=Total Assistance 5=Supervision or Setup 2=Maximal Assistance 6=Modified [place] 3=Moderate Assistance 7=Complete IndependenceIRFPAI Quality Coding Scale 6 Independent with activity with or without an assistive device 5 Patient requires set up or clean up by helper. Patient completes activity by themselves 4 Supervision or touching assist (CGA). [place] provide cues , steadying assist 3 The helper provides less than half the effort to complete the activity 2 The helper provides more than half the effort to complete the activity 1 Dependent. The helper does all the effort to complete an activity 7 Patient refused to complete or attempt activity 9 The patient did not perform the activity before the current illness or injury 88 Not attempted due to Medical conditions or safety concerns Education OT Patient Education: Purpose of tx/functional activities, Rehab process, Transfer techniques, Use of adapted equipment Teaching Recipient: Patient Teaching Methods: Discussion Response to Teaching: Verbalize Understanding OT Short Term Goals Short Term Goals 1=Demonstrate adherence to instructed precautions during ADL tasks. 2=Patient will verbalize/demonstrate understanding of assistive devices/ modifications for ADL. 3=Patient will improve strength/tolerance for activity to enable patient to perform ADL's. OT [place] [facility]er Goals Jail Goals Time Frame: Nov 26, 2017 Lower Body Dressing(FIM): 5 Toileting(FIM): 6 Toilet/Commode Transfer(FIM): 6 Additional Goals: 2-Verbalize Understanding 1=Demonstrate adherence to instructed precautions during ADL tasks. 2=Patient will verbalize/demonstrate understanding of assistive devices/ modifications for ADL. 3=Patient will improve strength/tolerance for activity to enable patient to perform ADL's. OT Education/Plan Problem List/Assessment Assessment: Dependent Transfers, Impaired Self-Care Skills Pt would benefit from skilled OT to increase her independence in basic self care to allow her to safely return home and to decrease caregiver burden Discharge Recommendations Plan/Recommendations: Continue POC Target Placement home with family Treatment Plan/Plan of Care Treatment,Training & Education: Yes Patient would benefit from OT for education, treatment and training to promote independence in ADL's, mobility, safety and/or upper extremity function for ADL' s. Plan of Care: ADL Retraining, Functional Mobility Comment Pt anticipates DC on 11-25-17 Treatment Duration: Nov 26, 2017 Frequency: 3 times per week Estimated Hrs Per Day: .25 hour per day Agreement: Yes Rehab Potential: Good Time/GCodes Start Time: 15:20 Stop Time: 15:30 Total Time Billed (hr/min): 10 Billed Treatment Time visit, 10 minutes evaluation low intensity JOSUÉ JAMES OT Nov 23, 2017 16:17
[2017-11-23] MEDS: LORATADINE (CLARITIN) 10 MG TAB PO SCH (20:09)
[2017-11-24] VITALS: BP 153/66
[2017-11-24] MEDS: oxyCODONE/APAP 5/325MG (PERCOCET 5) TABLET PO PRN ×6 (00:06→20:11)
[2017-11-24] MEDS: MULTIVIT W/MINERALS TAB (THERAGRAN M) PO SCH (06:16)
--- NOTE | 2017-11-24 06:57 | Progress Note-Standard ---
Standard Progress Note Progress Notes/Assess & Plan Date Seen by Provider: Nov 24, 2017 Time Seen by Provider: 06:56 Progress/Assessment & Plan post op check No complaints Radiographs--HW well positioned. No fractures LLE--spinal in effect. 2 plus DP pulse with brisk cap refill. Intact DF and PF of toes and ankle s/p LTKA mobilize as able when spinal no longer in effect Final Diagnosis No complaints Vital Signs Date Time Temp Pulse Resp B/P (MAP) Pulse Ox O2 Delivery O2 Flow Rate FiO2 11/24/17 00:00 98.7 105 19 153/66 (95) 90 Room Air 11/23/17 15:25 98.1 96 20 171/68 (102) 96 Room Air 11/23/17 12:00 97.7 62 20 112/55 (74) 92 Room Air 11/23/17 08:00 97.8 77 18 120/59 (79) 96 Room Air 11/23/17 08:00 Room Air I & O 11/24/17 07:00 Intake Total 3310 ml Output Total 1500 ml Balance 1810 ml LLE--incision clean and dry. No calf tenderness. Neg David's. Neg SLR s/p LTKA continue PT/OT JODI TILLEY MD Nov 24, 2017 06:57
[2017-11-24] MEDS ORDERED: morphine INJ 4 MG/ML 1 ML (VIAL/SYRINGE) IVP PRN (07:00)
[2017-11-24 07:29] LABS: BASOPHILS % (AUTO) 0 % (0-10); EOSINOPHILS # (AUTO) 0.1 10^3/uL (0.0-0.3); EOSINOPHILS % (AUTO) 1 % (0-10); HEMATOCRIT 29 % (35-52); HEMOGLOBIN 9.4 G/DL (11.5-16.0); LYMPHOCYTES # (AUTO) 1.6 X 10^3 (1.0-4.0); LYMPHOCYTES % (AUTO) 22 % (12-44); MEAN CORPUSCULAR HEMOGLOBIN 31 PG (25-34); MEAN CORPUSCULAR HGB CONC 33 G/DL (32-36); MEAN CORPUSCULAR VOLUME 95 FL (80-99); MEAN PLATELET VOLUME 10.6 FL (7.4-10.4); MONOCYTES # (AUTO) 0.8 X 10^3 (0.0-1.0); MONOCYTES % (AUTO) 11 % (0-12); NEUTROPHILS # (AUTO) 4.8 X 10^3 (1.8-7.8); NEUTROPHILS % (AUTO) 66 % (42-75); PLATELET COUNT 193 10^3/uL (130-400); WHITE BLOOD COUNT 7.3 10^3/uL (4.3-11.0)
[2017-11-24 07:49] LABS: ALANINE AMINOTRANSFERASE 21 U/L (0-55); ALBUMIN 2.9 GM/DL (3.2-4.5); ALKALINE PHOSPHATASE 55 U/L (40-136); BILIRUBIN,TOTAL 0.3 MG/DL (0.1-1.0); BUN/CREATININE RATIO 11; CALCIUM 8.7 MG/DL (8.5-10.1); CARBON DIOXIDE 26 MMOL/L (21-32); CHLORIDE 108 MMOL/L (98-107); CREATININE SERUM 0.62 MG/DL (0.60-1.30); GFR ESTIMATED > 60; GLUCOSE 98 MG/DL (70-105); POTASSIUM 3.6 MMOL/L (3.6-5.0); SODIUM 141 MMOL/L (135-145); TOTAL PROTEIN 5.3 GM/DL (6.4-8.2)
[2017-11-24] MEDS: ASPIRIN E.C. 81 MG (ECOTRIN) TAB PO SCH (07:50)
[2017-11-24] MEDS: LOSARTAN 25 MG (COZAAR) TAB PO SCH (07:50)
[2017-11-24] MEDS: SENNA W/DOCUSATE (SENOKOT S) TABLET PO SCH ×2 (07:50→20:09)
[2017-11-24] MEDS: ENOXAPARIN 30 MG/0.3 ML (LOVENOX) SYR SC SCH ×2 (07:50→20:09)
[2017-11-24 08:00] VITALS: BP 130/59
--- NOTE | 2017-11-24 09:13 | Physical Therapy Daily Note ---
PT Daily Note-Current Subjective Patient is in bed and agrees to PT. She c/o 10/10 left knee pain with meds issued. Pain Numeric Pain Scale: 10-Worst Possible Pain Location: Left Location Body Site: Knee Pain Description: Ache, Acute Mental Status Patient Orientation: Normal For Age Attachments: IV Transfers Functional [place] Measure 0=Not Assessed/NA 4=Minimal Assistance 1=Total Assistance 5=Supervision or Setup 2=Maximal Assistance 6=Modified [place] 3=Moderate Assistance 7=Complete IndependenceIRFPAI Quality Coding Scale 6 Independent with activity with or without an assistive device 5 Patient requires set up or clean up by helper. Patient completes activity by themselves 4 Supervision or touching assist (CGA). [place] provide cues , steadying assist 3 The helper provides less than half the effort to complete the activity 2 The helper provides more than half the effort to complete the activity 1 Dependent. The helper does all the effort to complete an activity 7 Patient refused to complete or attempt activity 9 The patient did not perform the activity before the current illness or injury 88 Not attempted due to Medical conditions or safety concerns Transfers (B, C, W/C) (FIM): 5 Scootin Supine to/from Sit: 5 Sit to/from Stand: 5 Weight Bearing Right Lower Extremity: Right Full Weight Bearing Left Lower Extremity: Left Weight Bearing/Tolerated Gait Training Gait (FIM): 5 Distance (FIM): 3=150 ft Distance: 225' Gait Level of Assist: 5 Gait Persons Needed: 1 Gait Assistive Device: FWW slow, antalgic, step to gait sequence with FWW Exercises Supine Ex: Ankle pumps, Quad Set, Heel Slides, Straight leg raise Supine Reps: 15 (AAROM left LE due to pain) Seated Therapy Exercises: Long arc quads Seated Reps: 20 (AAROM left knee) Assessment Patient tolerated treatment well and is up in recliner with needs met. Patient requires time to complete all functional tasks. Multiple recovery periods due to fatigue. PT Short Term Goals Short Term Goals Time Frame: Nov 24, 2017 PT Swimming Pool Attendant Goals Half-Way Goals PT Half-Way Goals Time Frame: Nov 28, 2017 Transfers (B,C,W/C) (FIM): 6 Gait (FIM): 6 Gait distance (FIM): 3=150 ft Gait Assistive Device: FWW Stairs (FIM): 5 # of Steps: 4 PT Plan Treatment/Plan Treatment Plan: Continue Plan of Care Treatment Plan: Bed Mobility, Education, Functional Activity Joseph, Functional Strength, Gait, Safety, Therapeutic Exercise, Transfers Treatment Duration: Nov 28, 2017 Frequency: 11 times per week Estimated Hrs Per Day: 1 hour per day Patient and/or Family Agrees t: Yes Time/GCodes Time In: 800 Time Out: 840 Total Billed Treatment Time: 40 Total Billed Treatment 1 visit GT 17 min EX x 2 23 min TEJAS HENSLEY PT Nov 24, 2017 09:13
[2017-11-24] MEDS ORDERED: KCL 20 MEQ TAB (K-DUR) PO NR (10:45)
--- NOTE | 2017-11-24 11:39 | Physical Therapy Daily Note ---
PT Daily Note-Current Subjective Patient agrees to PT. Pain Numeric Pain Scale: 5-Moderate Pain Location: Left Location Body Site: Knee Pain Description: Ache, Acute Mental Status Patient Orientation: Normal For Age Transfers Functional [place] Measure 0=Not Assessed/NA 4=Minimal Assistance 1=Total Assistance 5=Supervision or Setup 2=Maximal Assistance 6=Modified [place] 3=Moderate Assistance 7=Complete IndependenceIRFPAI Quality Coding Scale 6 Independent with activity with or without an assistive device 5 Patient requires set up or clean up by helper. Patient completes activity by themselves 4 Supervision or touching assist (CGA). [place] provide cues , steadying assist 3 The helper provides less than half the effort to complete the activity 2 The helper provides more than half the effort to complete the activity 1 Dependent. The helper does all the effort to complete an activity 7 Patient refused to complete or attempt activity 9 The patient did not perform the activity before the current illness or injury 88 Not attempted due to Medical conditions or safety concerns Transfers (B, C, W/C) (FIM): 5 Scootin Rollin Sit to/from Stand: 5 Weight Bearing Right Lower Extremity: Right Full Weight Bearing Left Lower Extremity: Left Weight Bearing/Tolerated Gait Training Gait (FIM): 5 Distance (FIM): 3=150 ft Distance: 225' Gait Level of Assist: 5 Gait Assistive Device: FWW slow, antalgic Exercises Supine Ex: Ankle pumps, Quad Set, Heel Slides, Straight leg raise Supine Reps: 10 Treatments CPM 0-80 degrees with polar pack in place Assessment Patient tolerated treatment well and reports someone will be with her at home . She continues to require SBA for safety with mobility. PT Short Term Goals Short Term Goals Time Frame: Nov 24, 2017 PT Penitentiary Goals Health Information Systems Technician Goals PT Health Information Systems Technician Goals Time Frame: Nov 28, 2017 Transfers (B,C,W/C) (FIM): 6 Gait (FIM): 6 Gait distance (FIM): 3=150 ft Gait Assistive Device: FWW Stairs (FIM): 5 # of Steps: 4 PT Plan Treatment/Plan Treatment Plan: Continue Plan of Care Treatment Plan: Bed Mobility, Education, Functional Activity Joseph, Functional Strength, Gait, Safety, Therapeutic Exercise, Transfers Treatment Duration: Nov 28, 2017 Frequency: 11 times per week Estimated Hrs Per Day: 1 hour per day Patient and/or Family Agrees t: Yes Time/GCodes Time In: 1100 Time Out: 1130 Total Billed Treatment Time: 30 Total Billed Treatment 1 visit GT 15 min EX 15 min TEJAS HENSLEY PT Nov 24, 2017 11:39
--- NOTE | 2017-11-24 12:19 | Progress Note-Hospitalist ---
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 at [facility] for high blood pressure and had just been diagnosed with hypertension March 2016 who presents to room 425 after an uncomplicated left total knee arthroplasty by Dr. Catragena. Currently she has no pain and her BP is slightly low so I have held her home BP meds. Progress Notes/Assess & Plan Date Seen 11/24/17 Time Seen by Provider: 10:00 Admission Dx/Process Assessment: s/p left knee arthroplasty POD # 0 HTN but currently experiencing mild hypotension so holding meds OA Diagonsis/Assessment & Plan Chart Review: Max fever 100.2 BP stable. Restarting home BP medicine WBC 73 Hgb 9.4 CMP normal Give K+ due to K+ 3.6 Patient Interview: Pt denies nausea and confirms having a patch behind her ear. Pt was informed that I have restarted some of her BP meds Pt denies having BM, but states she will use a Fleets enema tomorrow at home Pt confirms IS usage Physical exam stable. Lungs sound perfect AFVSS, Pleasant, O x 3, much improved and lying in bed RRR, CTAB no edema Laboratory Tests 11/24/17 06:42 Assessment: s/p left knee arthroplasty POD # 2 HTN but currently experiencing mild hypotension so holding meds OA s/p nausea and pain yesterday Mild hypokalemia giveing supplement Mild post op anemia due to acute blood loss but stable Plan: Monitor BP BM regimen DVT Px Scop patch for nausea Restart Amlodipine and Hydrochlorothiazide IS Give K+ due to K+ 3.6 DANA IVAN DO Nov 24, 2017 12:19
--- NOTE | 2017-11-24 14:03 | Occupational Ther Daily Note ---
OT Current Status-Daily Note Subjective Pt in bed, agrees to treatment. Mental Status/Objective Functional [place] Measure 0=Not Assessed/NA 4=Minimal Assistance 1=Total Assistance 5=Supervision or Setup 2=Maximal Assistance 6=Modified [place] 3=Moderate Assistance 7=Complete [place] ADL-Treatment Pt supine to sit with minimal assistance for left LE. Pt sat EOB with good balance during ADL activity. Education provided regarding use of adaptive equipment for LE dressing. Pt doffed socks with SBA using dressing stick. Donned socks with minimal assistance using sock aid. Pt declined to dress today , but was educated on technique for donning pants with adaptive equipment. Pt states she will be going home tomorrow and daughter will be staying with her to assist as needed. Pt has no questions or concerns at this time. Sit to supine with minimal assistance for left LE. Pt in bed with needs met and polar pack in place after session. OT Short Term Goals Short Term Goals 1=Demonstrate adherence to instructed precautions during ADL tasks. 2=Patient will verbalize/demonstrate understanding of assistive devices/ modifications for ADL. 3=Patient will improve strength/tolerance for activity to enable patient to perform ADL's. OT [facility] Goals [facility] Goals Time Frame: Nov 26, 2017 Lower Body Dressing(FIM): 5 Toileting(FIM): 6 Toilet/Commode Transfer(FIM): 6 Additional Goals: 2-Verbalize Understanding 1=Demonstrate adherence to instructed precautions during ADL tasks. 2=Patient will verbalize/demonstrate understanding of assistive devices/ modifications for ADL. 3=Patient will improve strength/tolerance for activity to enable patient to perform ADL's. OT Education/Plan Problem List/Assessment Pt would benefit from skilled OT to increase her independence in basic self care to allow her to safely return home and to decrease caregiver burden Discharge Recommendations Plan/Recommendations: Continue POC Treatment Plan/Plan of Care Patient would benefit from OT for education, treatment and training to promote independence in ADL's, mobility, safety and/or upper extremity function for ADL' s. Plan of Care: ADL Retraining, Functional Mobility Treatment Duration: Nov 26, 2017 Frequency: 3 times per week Estimated Hrs Per Day: .25 hour per day Agreement: Yes Rehab Potential: Good Time/GCodes Start Time: 13:33 Stop Time: 13:50 Total Time Billed (hr/min): 17 Billed Treatment Time 1 visit, ADL(17minutes) ALY,SAM L OT Nov 24, 2017 14:03
[2017-11-24 16:00] VITALS: BP 171/74
[2017-11-24] MEDS: LORATADINE (CLARITIN) 10 MG TAB PO SCH (20:09)
[2017-11-24] MEDS ORDERED: amLODIPine 2.5MG (NORVASC) TAB PO SCH (21:00)
[2017-11-25] VITALS: BP 154/67
[2017-11-25] MEDS: oxyCODONE/APAP 5/325MG (PERCOCET 5) TABLET PO PRN ×4 (01:43→09:38)
[2017-11-25] MEDS: MULTIVIT W/MINERALS TAB (THERAGRAN M) PO SCH (06:23)
[2017-11-25 06:47] LABS: BASOPHILS # (AUTO) 0.1 10^3/uL (0.0-0.1); BASOPHILS % (AUTO) 1 % (0-10); EOSINOPHILS # (AUTO) 0.1 10^3/uL (0.0-0.3); EOSINOPHILS % (AUTO) 2 % (0-10); HEMATOCRIT 27 % (35-52); LYMPHOCYTES # (AUTO) 1.5 X 10^3 (1.0-4.0); LYMPHOCYTES % (AUTO) 20 % (12-44); MEAN CORPUSCULAR HEMOGLOBIN 31 PG (25-34); MEAN CORPUSCULAR HGB CONC 33 G/DL (32-36); MEAN CORPUSCULAR VOLUME 95 FL (80-99); MEAN PLATELET VOLUME 10.1 FL (7.4-10.4); MONOCYTES # (AUTO) 0.7 X 10^3 (0.0-1.0); MONOCYTES % (AUTO) 9 % (0-12); NEUTROPHILS # (AUTO) 5.4 X 10^3 (1.8-7.8); NEUTROPHILS % (AUTO) 69 % (42-75); PLATELET COUNT 205 10^3/uL (130-400); RED BLOOD COUNT 2.89 10^6/uL (4.35-5.85); RED CELL DISTRIBUTION WIDTH 14.1 % (10.0-14.5); WHITE BLOOD COUNT 7.8 10^3/uL (4.3-11.0)
[2017-11-25 07:05] LABS: ALANINE AMINOTRANSFERASE 25 U/L (0-55); ALBUMIN 2.9 GM/DL (3.2-4.5); ALKALINE PHOSPHATASE 53 U/L (40-136); BILIRUBIN,TOTAL 0.5 MG/DL (0.1-1.0); BUN/CREATININE RATIO 14; CALCIUM 8.8 MG/DL (8.5-10.1); CARBON DIOXIDE 26 MMOL/L (21-32); CHLORIDE 107 MMOL/L (98-107); CREATININE SERUM 0.59 MG/DL (0.60-1.30); GFR ESTIMATED > 60; GLUCOSE 99 MG/DL (70-105); POTASSIUM 3.3 MMOL/L (3.6-5.0); SODIUM 142 MMOL/L (135-145); TOTAL PROTEIN 5.4 GM/DL (6.4-8.2)
[2017-11-25 08:30] VITALS: BP 152/65
[2017-11-25] MEDS ORDERED: HYDROCHLOROTHIAZIDE 25 MG (HCTZ) TAB PO SCH (09:00)
[2017-11-25] MEDS: LOSARTAN 25 MG (COZAAR) TAB PO SCH (09:35)
[2017-11-25] MEDS: SENNA W/DOCUSATE (SENOKOT S) TABLET PO SCH (09:35)
[2017-11-25] MEDS: ASPIRIN E.C. 81 MG (ECOTRIN) TAB PO SCH (09:35)
[2017-11-25] MEDS: ENOXAPARIN 30 MG/0.3 ML (LOVENOX) SYR SC SCH (09:36)
[2017-11-25 09:58] VITALS: BP 152/65
[2017-11-25] MEDS ORDERED: SCOPOLAMINE 1.5 MG (TRANSDERM-SCOP) PATCH TD NR (10:00)
--- NOTE | 2017-11-25 10:01 | Progress Note-Standard ---
Standard Progress Note Progress Notes/Assess & Plan Date Seen by Provider: Nov 25, 2017 Time Seen by Provider: 09:59 Progress/Assessment & Plan post op check No complaints Radiographs--HW well positioned. No fractures LLE--spinal in effect. 2 plus DP pulse with brisk cap refill. Intact DF and PF of toes and ankle s/p LTKA mobilize as able when spinal no longer in effect Final Diagnosis No complaints Vital Signs Date Time Temp Pulse Resp B/P (MAP) Pulse Ox O2 Delivery O2 Flow Rate FiO2 11/25/17 07:00 Room Air 11/25/17 00:00 99.2 103 15 154/67 (96) 91 Room Air 11/24/17 16:00 99.5 95 20 171/74 (106) 92 Room Air I & O 11/25/17 07:00 Intake Total 2870 ml Output Total 1450 ml Balance 1420 ml Laboratory Tests Test 11/25/17 06:13 Range/Units White Blood Count 7.8 4.3-11.0 10^3/uL Red Blood Count 2.89 L 4.35-5.85 10^6/uL Hemoglobin 9.0 L 11.5-16.0 G/DL Hematocrit 27 L 35-52 % Mean Corpuscular Volume 95 80-99 FL Mean Corpuscular Hemoglobin 31 25-34 PG Mean Corpuscular Hemoglobin Concent 33 32-36 G/DL Red Cell Distribution Width 14.1 10.0-14.5 % Platelet Count 205 130-400 10^3/uL Mean Platelet Volume 10.1 7.4-10.4 FL Neutrophils (%) (Auto) 69 42-75 % Lymphocytes (%) (Auto) 20 12-44 % Monocytes (%) (Auto) 9 0-12 % Eosinophils (%) (Auto) 2 0-10 % Basophils (%) (Auto) 1 0-10 % Neutrophils # (Auto) 5.4 1.8-7.8 X 10^3 Lymphocytes # (Auto) 1.5 1.0-4.0 X 10^3 Monocytes # (Auto) 0.7 0.0-1.0 X 10^3 Eosinophils # (Auto) 0.1 0.0-0.3 10^3/uL Basophils # (Auto) 0.1 0.0-0.1 10^3/uL Sodium Level 142 135-145 MMOL/L Potassium Level 3.3 L 3.6-5.0 MMOL/L Chloride Level 107 98-107 MMOL/L Carbon Dioxide Level 26 21-32 MMOL/L Anion Gap 9 5-14 MMOL/L Blood Urea Nitrogen 8 7-18 MG/DL Creatinine 0.59 L 0.60-1.30 MG/DL Estimat Glomerular Filtration Rate > 60 BUN/Creatinine Ratio 14 Glucose Level 99 70-105 MG/DL Calcium Level 8.8 8.5-10.1 MG/DL Total Bilirubin 0.5 0.1-1.0 MG/DL Aspartate Amino Transf (AST/SGOT) 19 5-34 U/L Alanine Aminotransferase (ALT/SGPT) 25 0-55 U/L Alkaline Phosphatase 53 40-136 U/L Total Protein 5.4 L 6.4-8.2 GM/DL Albumin 2.9 L 3.2-4.5 GM/DL LLE--dressing intact. No calf tenderness. Neg Tone. SLR. s/p LTKA doing well [facility] JODI TILLEY MD Nov 25, 2017 10:01
[2017-11-25 10:45] VITALS: BP 152/65
[2017-11-25] MEDS ORDERED: KCL 20 MEQ TAB (K-DUR) PO NR (10:45)
--- NOTE | 2017-11-25 10:48 | Physical Therapy Daily Note ---
PT Daily Note-Current Subjective Pt. in recliner upon arrival, agrees to therapy. She rates pain 10/10 in the L knee while ambulating. States she recently took pain meds. Mental Status Patient Orientation: Normal For Age Transfers Functional [place] Measure 0=Not Assessed/NA 4=Minimal Assistance 1=Total Assistance 5=Supervision or Setup 2=Maximal Assistance 6=Modified [place] 3=Moderate Assistance 7=Complete IndependenceIRFPAI Quality Coding Scale 6 Independent with activity with or without an assistive device 5 Patient requires set up or clean up by helper. Patient completes activity by themselves 4 Supervision or touching assist (CGA). [place] provide cues , steadying assist 3 The helper provides less than half the effort to complete the activity 2 The helper provides more than half the effort to complete the activity 1 Dependent. The helper does all the effort to complete an activity 7 Patient refused to complete or attempt activity 9 The patient did not perform the activity before the current illness or injury 88 Not attempted due to Medical conditions or safety concerns Transfers (B, C, W/C) (FIM): 4 Sit to/from Stand: 4 Weight Bearing Right Lower Extremity: Right Full Weight Bearing Left Lower Extremity: Left Weight Bearing/Tolerated Gait Training Gait (FIM): 5 Distance (FIM): 3=150 ft Distance: 200 ft Gait Level of Assist: 5 Gait Persons Needed: 1 Gait Assistive Device: FWW antalgic gait on the L LE, step-to pattern Exercises Supine Ex: Ankle pumps, Quad Set, Straight leg raise, Hip abd/add Supine Reps: 15 Seated Therapy Exercises: Long arc quads, Hamstring Curls Seated Reps: 15 Treatments gait, exercise Assessment Current Status: Good Progress Pt. needed min A to stand from chair but was otherwise SBA with mobility. She did well with knee exercises and has good quad firing. Pt. returned to recliner post session, polar care L knee, call light in reach and all needs met. PT Short Term Goals Short Term Goals Time Frame: Nov 24, 2017 PT [place] Goals Skilled Nursing Goals PT Skilled Nursing Goals Time Frame: Nov 28, 2017 Transfers (B,C,W/C) (FIM): 6 Gait (FIM): 6 Gait distance (FIM): 3=150 ft Gait Assistive Device: FWW Stairs (FIM): 5 # of Steps: 4 PT Plan Treatment/Plan Treatment Plan: Continue Plan of Care Treatment Plan: Bed Mobility, Education, Functional Activity Joseph, Functional Strength, Gait, Safety, Therapeutic Exercise, Transfers Treatment Duration: Nov 28, 2017 Frequency: 11 times per week Estimated Hrs Per Day: 1 hour per day Patient and/or Family Agrees t: Yes Time/GCodes Time In: 820 Time Out: 845 Total Billed Treatment Time: 25 Total Billed Treatment 1, GT 15', Ex 10' VITALY ALARCON PT Nov 25, 2017 10:48
--- NOTE | 2017-11-25 11:56 | DISCHARGE SUMMARY ---
DATE OF SERVICE: DIAGNOSIS: Left knee primary osteoarthritis. PROCEDURE: Left total knee arthroplasty. SUMMARY: The patient is an 82-year-old female who underwent a left total knee arthroplasty on the day of admission. Postoperatively, she did very well. At the time of discharge her wound was clean and dry. She had no calf tenderness. Negative Homans sign. She could perform a straight leg raise. She had cleared physical therapy and had attained independent status. CONDITION AT DISCHARGE: Good. DISCHARGE DIET: Regular. FOLLOWUP: In three weeks. DISCHARGE MEDICATIONS: Percocet as needed for pain. HOME MEDICATIONS: Aspirin. ACTIVITIES: Weightbearing as tolerated with a walker. Job ID: [id number] DocumentID: [id number] Dictated Date: 11/25/2017 09:59:34 [employer] Date: 11/25/2017 11:56:06 Dictated By: JODI TILLEY MD
== END 2017-11-25 10:50 | disposition home health service (06) | DRG 470 ==
LOC: SURGICAL 06:00 → SURG 06:01 → 4TH 10:30
PROVIDERS: ADMIT Orthopaedic Surgery; ATTEND Orthopaedic Surgery
PROC: 0SRD0J9 Replacement of Left Knee Joint with Synthetic Substitute, Cemented, Open Approach (ICD-10-PCS; principal; 2017-11-22 07:33)
DX: M17.12 Unilateral primary osteoarthritis, left knee (principal); D62 Acute posthemorrhagic anemia; I10 Essential (primary) hypertension; I95.9 Hypotension, unspecified; E87.6 Hypokalemia; R11.2 Nausea with vomiting, unspecified
CPT/HCPCS: 36415; 73560; 80053; 85025; 94664